=== PATIENT | male | born 1975 | race Caucasian/White ===

== ENCOUNTER → 2017-02-26 | Outpatient (CLI) | payer OTHER, MEDICAID | LOC: CIMAGING 07:54 | PROVIDERS: ATTEND Internal Medicine | DX: R16.0 Hepatomegaly, not elsewhere classified (principal) | CPT/HCPCS: 76705-PO ==

== ENCOUNTER 2017-05-01 12:55 | Emergency (ER) | payer OTHER, MEDICAID ==
--- NOTE | 2017-05-01 13:04 | EDPHY ---
H & P Time Seen by Provider: 05/01/17 13:03 HPI/ROS: CHIEF COMPLAINT: Bump behind left ear HISTORY OF PRESENT ILLNESS: Present for the last 3 days, painful and swollen. REVIEW OF SYSTEMS: No local trauma and no hearing loss and no fever. PAST MEDICAL HISTORY: Includes type 2 diabetes, sleep apnea, hypertension Social history: Smoker General Appearance: Alert and conversant, cooperative. Alert, ambulatory. 1 cm swollen erythematous fluctuant area just behind the left ear. No surrounding redness and no lymphangitis. Patient looks nontoxic. Emergency Department course/MDM: Procedure: Abscess drainage. The patient's abscess was located on the behind the left ear. I obtained verbal consent from the patient to drain the abscess who was informed about the possibility of bleeding and pain. The area was prepped and draped in the usual sterile fashion, with 1% lidocaine without epinephrine used for local anesthesia. The abscess was incised with a #11 scalpel and a moderate amount of purulent drainage was expressed. I irrigated the wound and placed a dressing. The patient tolerated the procedure well. The procedure was performed by myself. Patient would like to be discharged without antibiotics which I think is reasonable as he does not have evidence of local cellulitis and I feel adequate drainage has been achieved. Warning signs of recurrent infection discussed. Smoking Status: Heavy smoker Constitutional: Initial Vital Signs Temperature (C) 37.2 C 05/01/17 12:58 Heart Rate 83 05/01/17 12:58 Respiratory Rate 16 05/01/17 12:58 Blood Pressure 151/96 H 05/01/17 12:58 O2 Sat (%) 95 05/01/17 12:58 O2 Delivery Mode Room Air Allergies/Adverse Reactions: No Known Allergies Allergy (Verified 05/01/17 13:06) Home Medications: Medication Instructions Recorded Ambien 05/01/17 Atorvastatin Calcium 05/01/17 LORazepam 05/01/17 Lisinopril 05/01/17 Metformin HCl 05/01/17 MDM/Departure - Depart Disposition: Home, Routine, Self-Care Clinical Impression: Abscess of left external ear Condition: Good Instructions: Abscess (ED) Referrals: Quita Tinoco MD [Primary Care Provider] - As per Instructions
[2017-05-01 13:09] VITALS: BP 151/96; PULSE 83; RESP 16; TEMP 99; O2SAT 95
== END 2017-05-01 13:24 | disposition home or self-care (01) ==
LOC: CED 12:55
PROC: 0991XZZ Drainage of Left External Ear, External Approach (ICD-10-PCS; principal; 2017-05-01)
DX: H60.02 Abscess of left external ear (principal); E11.9 Type 2 diabetes mellitus without complications; I10 Essential (primary) hypertension; F17.200 Nicotine dependence, unspecified, uncomplicated; Z79.84 Long term (current) use of oral hypoglycemic drugs

== ENCOUNTER → 2017-12-16 | Outpatient (CLI) | payer OTHER, MEDICAID | LOC: FCPNEURO 21:00 | PROVIDERS: ATTEND Student in an Organized Health Care Education/Training Program | DX: G47.33 Obstructive sleep apnea (adult) (pediatric) (principal); R09.02 Hypoxemia ==